=== PATIENT | male | born 1995 | race Caucasian/White ===

== ENCOUNTER 2016-07-01 02:17 | Emergency (ER) | payer SELFPAY ==
[~2016-07-01] VITALS: Ht 190.5 cm; Wt 81.0 kg
[2016-07-01 02:20] VITALS: BP 130/59; PULSE 61; RESP 14; TEMP 97.6; O2SAT 100
[2016-07-01] MEDS ORDERED: IBUP800T23 PO (02:37)
--- NOTE | 2016-07-01 02:37 | PD ---
HPI Chief Complaint: ENT Complaint Time Seen by Provider: 02:35 Travel History International Travel<30 days: No Contact w/Intl Traveler<30days: No Traveled to known affect area: No History of Present Illness HPI 20-year-old male presents to the emergency department for evaluation of a sore throat 1 month. Patient states that he is not seeing a primary care provider and has not taken anything for the sore throat except he has gargled warm water at times. Denies any fever or chills. No cough or chest congestion. Patient does smoke tobacco cigarettes. He has no other symptoms to report at this time. 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 HEAD: Normocephalic. Atraumatic EYES: No scleral icterus. No injection or drainage. ENT: Mucosa pink and moist. Drinks erythema, no significant edema and no exudates.. No uvular edema. No uvular, palatal, or tonsillar deviation. Airway patent. Nasal turbinates appear normal without nasal blood, purulent drainage or septal hematoma. NECK: Supple, trachea midline. No JVD or lymphadenopathy. CARDIOVASCULAR: Regular rate and rhythm without murmurs, gallops, or rubs. RESPIRATORY: Breath sounds equal bilaterally. No accessory muscle use. Data Data Last Documented VS Vital Signs Date Time Temp Pulse Resp B/P Pulse Ox O2 Delivery O2 Flow Rate FiO2 07/01/16 02:38 14 07/01/16 02:20 97.6 61 130/59 100 Room Air MDM Medical Decision Making Medical Screen Exam Complete: Yes Emergency Medical Condition: Yes Medical Record Reviewed: Yes Differential Diagnosis Pharyngitis viral versus bacterial versus allergies versus postnasal drip versus smoke irritation Narrative Course 20-year-old male presents to the emergency primary for evaluation of sore throat 1 month. Patient does have a slightly erythematous pharynx with no significant edema and there are no exudates. I have encouraged the patient to take ibuprofen and to do warm saltwater gargles. He is encouraged to follow-up with primary care provider. He agrees to return immediately with any acute worsening of symptoms. Diagnosis Primary Impression: Pharyngitis Qualified Code: J02.9 - Pharyngitis, unspecified etiology Referrals: Ear / Nose / Throat Specialist Primary Care Physician Patient Instructions: General Instructions, Pharyngitis (ED) Additional Instructions: Warm salt water gargles may help to alleviate symptoms Follow-up with a primary care provider floral department specialist follow-up may be warranted if symptoms persist Return immediately to the emergency department with any acute worsening of symptoms Med/Other Pt SpecificInfo: Prescription(s) given Scripts Ibuprofen 800 Mg Ftg408 Mg PO Q8H PRN (Pain/Inflammation) #30 TAB Ref 0 Prov:Dionna Ogden 07/01/16 Disposition: 01 DISCHARGE HOME Condition: Stable Dionna Ogden Jul 01, 2016 02:37
== END 2016-07-01 02:48 | disposition home or self-care (01) ==
LOC: NEPB 02:17
DX: J02.9 Acute pharyngitis, unspecified (principal); F17.210 Nicotine dependence, cigarettes, uncomplicated; F12.10 Cannabis abuse, uncomplicated
CPT/HCPCS: 99282